=== PATIENT | male | born 1985 | race Caucasian/White ===

== ENCOUNTER 2017-10-04 19:36 | Emergency (ER) | payer BC ==
[2017-10-04 19:54] LABS: BASOPHIL (%) 0.6 % (0-1); BASOPHIL COUNT 0.1 K/uL (0-0.1); EOSINOPHIL (%) 1.9 % (0-5); EOSINOPHIL COUNT 0.2 K/uL (0-0.3); HEMATOCRIT 45.2 % (38.0-50.0); HEMOGLOBIN 15.6 G/DL (12.5-16.6); IMMATURE GRANULOCYTE (%) 0.9 % (0.0-0.7); LYMPHOCYTE (%) 20.9 % (15-42); LYMPHOCYTE COUNT 2.1 K/uL (1.0-2.8); MCH 32.3 PG (29.0-34.0); MCHC 34.5 G/DL (30.0-36.0); MCV 93.6 FL (86-99); MONOCYTE (%) 4.9 % (3-12); MONOCYTE COUNT 0.5 K/uL (0-0.8); NEUTROPHIL (%) 70.8 % (45-76); NEUTROPHIL COUNT 7.2 K/uL (1.8-6.4); PLATELET COUNT 158 K/uL (156-360); RBC DIS.WIDTH-CV 11.7 % (11.8-14.6); RBC DIS.WIDTH-SD 40.1 % (39-53); RED BLOOD COUNT 4.83 M/uL (4.00-5.50); WHITE BLOOD COUNT 10.1 K/uL (4.1-10.2)
[2017-10-04 20:08] LABS: AMYLASE 33 IU/L (1-118); CHLORIDE 103 mEq/L (99-109); POTASSIUM 3.7 mEq/L (3.7-5.4); SODIUM 138 mEq/L (136-147)
[2017-10-04 20:09] LABS: GLUCOSE 106 mg/dL (70-99)
[2017-10-04 20:13] LABS: CREATININE 1.1 mg/dL (0.6-1.3); SERUM ETHYL ALCOHOL < 10 mg/dL
[2017-10-04 20:14] LABS: UREA NITROGEN (BUN) 13 mg/dL (9-23)
[2017-10-04 20:16] LABS: LIPASE 20 U/L (1.0-51.0)
[2017-10-04 20:21] LABS: GFR ESTIMATE (CALCULATED) > 59 mL/min/ (58.99-99999)
[2017-10-04] MEDS ORDERED: CLEOCIN300 MG PO (21:32)
[2017-10-04] MEDS ORDERED: ZOFRAN4 MG PO (23:52)
[2017-10-04] MEDS ORDERED: PERCOCET 5/31 TABLET PO (23:52)
== END 2017-10-05 00:32 | disposition home or self-care (01) ==
LOC: TRA 19:36
PROVIDERS: Emergency Medicine
DX: S71.011A Laceration without foreign body, right hip, initial encounter (principal); S81.812A Laceration without foreign body, left lower leg, initial encounter; S81.012A Laceration without foreign body, left knee, initial encounter; S31.822A Laceration with foreign body of left buttock, initial encounter; S31.812A Laceration with foreign body of right buttock, initial encounter; S81.021A Laceration with foreign body, right knee, initial encounter; S71.111A Laceration without foreign body, right thigh, initial encounter; S91.011A Laceration without foreign body, right ankle, initial encounter; S31.119A Laceration without foreign body of abdominal wall, unspecified quadrant without penetration into peritoneal cavity, initial encounter; R91.8 Other nonspecific abnormal finding of lung field; V13.4XXA Pedal cycle driver injured in collision with car, pick-up truck or van in traffic accident, initial encounter; Y93.55 Activity, bike riding; Y92.410 Unspecified street and highway as the place of occurrence of the external cause
CPT/HCPCS: 70450; 71045; 71260; 72125; 73090; 73560; 74177; 80048; 81003; 82150; 83690; 85025; 86850; 86900; 86901; 99281; 99285; G0480; J0690; J2270